=== PATIENT | male | born 1985 | race Caucasian/White ===

== ENCOUNTER 2016-10-07 21:01 | Emergency (ER) | payer SELFPAY ==
[2016-10-07 21:03] VITALS: BP 152/82; PULSE 126; RESP 16; TEMP 98.6; O2SAT 100
[2016-10-07] MEDS ORDERED: DICL50TA3 PO (21:43)
[2016-10-07] MEDS ORDERED: CLIN150 PO (21:43)
[2016-10-07] MEDS ORDERED: ACETAMINOPHEN/HYDROcodone 325 MG/5 MG TAB PO ONE (21:45)
[2016-10-07] MEDS ORDERED: CLINDAMYCIN 150 MG CAP PO ONE (21:45)
--- NOTE | 2016-10-07 21:46 | PD ---
HPI Chief Complaint: Oral / Dental Pain or Problem Time Seen by Provider: 21:43 Travel History International Travel<30 days: No Contact w/Intl Traveler<30days: No Traveled to known affect area: No History of Present Illness HPI 31-year-old white male visiting from a [facility] to [place] to [facility] presents today with complaints of dental pain. He states that he has had a cavity in his right upper mandible for quite some time. He states that part of the cusp broken off today. Patient states that he feels the tooth is loose now as well. Pain is moderate. He plans on staying in town for a couple more days. He denies any fever or chills. No alleviating factors. PFSH Past Medical History Medical History: Denies Significant Hx Tetanus Vaccination: < 5 Years Past Surgical History Surgical History: No Previous Surgery Social History Alcohol Use: Yes Tobacco Use: No Substance Use: No Allergies-Medications (Allergen,Severity, Reaction): Coded Allergies: Penicillin (Verified Allergy, Unknown, 10/07/16) Sulfa (Verified Allergy, Unknown, 10/07/16) Review of Systems Except as stated in HPI: all other systems reviewed are Neg General / Constitutional: No: Fever, Chills Eyes: No: Photophobia, Drainage HENT: Positive: Dental Difficulties, No: Sore Throat, Congestion, Gingival Bleeding, Ear Discharge, Earache Cardiovascular: No: Chest Pain or Discomfort, Palpitations Physical Exam Narrative GENERAL: Well-developed, well-nourished in no acute distress. Nontoxic appearing. HEAD: Normocephalic, atraumatic. EYES: Pupils equal round and reactive. Extraocular motions intact. No scleral icterus. No injection or drainage. ENT: TMs clear without erythema. The external auditory canals clear. Nose: clear . Posterior pharynx is pink and moist. No tonsillar edema or exudate. Uvula midline. Airway patent. Patient has a large dental carry in tooth #3. There is a fracture in the cusp. There is no significant gingival erythema. Mild edema. No facial swelling. The floor the mouth is normal. NECK: Trachea midline.Supple, nontender, moves head freely. No central bony tenderness or spasm. CARDIOVASCULAR: Regular rate and rhythm without murmurs, gallops, or rubs. RESPIRATORY: Clear to auscultation. Breath sounds equal bilaterally. No wheezes , rales, or rhonchi. GASTROINTESTINAL: Abdomen soft, non-tender, nondistended. No hepato-splenomegaly , or palpable masses. No guarding. EXTREMITIES: No clubbing, cyanosis, or edema. No joint tenderness, effusion, or edema noted. BACK: Nontender without deformity or crepitance. No flank tenderness. Data Data Last Documented VS Vital Signs Date Time Temp Pulse Resp B/P Pulse Ox O2 Delivery O2 Flow Rate FiO2 10/07/16 21:03 98.6 126 16 152/82 100 Room Air Orders Clindamycin (Cleocin) (10/07/16 21:45) Acetamin-Hydrocod 325-5 Mg (Loyal 5-325 (10/07/16 21:45) MDM Medical Decision Making Medical Screen Exam Complete: Yes Emergency Medical Condition: Yes Medical Record Reviewed: Yes Differential Diagnosis MDM: Moderate Differential diagnoses: Dental abscess, dental caries, osteitis, cellulitis Narrative Course Patient's given clindamycin 150 mg by mouth and Lortab 5 milligrams by mouth. This is dentalgia, dental caries, dental fracture Diagnosis Primary Impression: Dentalgia Additional Impressions: Dental caries dental fracture Patient Instructions: Narcotic given in the ED, General Instructions Additional Instructions: Rest. Saltwater gargles. [place] oil on cotton balls. Clindamycin and diclofenac. Most have your tooth extracted. follow-up with a dentist as soon as possible. And return to the ER if any problems. Med/Other Pt SpecificInfo: Prescription(s) given Scripts Diclofenac Sodium DR 50 Mg Tabdr50 Mg PO TID #21 TAB Prov:Jonny Agudelo MD 10/07/16 Clindamycin (Cleocin)150 Mg Qdp399 Mg PO Q6H #28 CAP Prov:Jonny Agudelo MD 10/07/16 Disposition: 01 DISCHARGE HOME Condition: Stable Prashant Teran Oct 07, 2016 21:46
== END 2016-10-07 21:55 | disposition home or self-care (01) ==
LOC: NEPD 21:01
DX: K03.9 Disease of hard tissues of teeth, unspecified (principal); K02.9 Dental caries, unspecified; S02.5XXA Fracture of tooth (traumatic), initial encounter for closed fracture; X58.XXXA Exposure to other specified factors, initial encounter
CPT/HCPCS: 99284